=== PATIENT | male | born 1990 ===

== ENCOUNTER 2018-02-09 18:05 | Emergency (ER) | payer OTHER ==
[~2018-02-09] VITALS: Ht 167.6 cm; Wt 85.0 kg
[2018-02-09 18:37] VITALS: BP 142/91
[2018-02-09] MEDS ORDERED: AZIT250T83 PO (19:36)
[2018-02-09] MEDS ORDERED: ALBU8HFA PO (19:36)
== END 2018-02-09 19:55 | disposition home or self-care (01) ==
LOC: ER 18:06
DX: J20.9 Acute bronchitis, unspecified (principal); F12.90 Cannabis use, unspecified, uncomplicated
CPT/HCPCS: 99283